=== PATIENT | female | born 1950 | race Caucasian/White ===

== ENCOUNTER 2022-02-26 16:08 | Emergency (ER) | payer MEDICARE ==
[2022-02-26] MEDS ORDERED: Lidocaine 1% (PF) 30 ML VIAL ONE (17:46)
[2022-02-26] MEDS ORDERED: Silver Nitrate Application 1 EACH ONE (17:47)
[2022-02-26] MEDS ORDERED: Lidocaine 1% w/Epinephrine 1:200K 30 ML VIAL FS SCH (18:00)
[2022-02-26] MEDS ORDERED: Boostrix 0.5 ML (Tdap) VIAL ONE ×2 (18:55→19:12)
== END 2022-02-26 19:36 | disposition home or self-care (01) ==
LOC: CSHERS 16:08
DX: S01.01XA Laceration without foreign body of scalp, initial encounter (principal); E11.9 Type 2 diabetes mellitus without complications; W19.XXXA Unspecified fall, initial encounter
CPT/HCPCS: 12002; 70450; 90471; 90715; J2001

== ENCOUNTER 2022-03-12 15:04 | Emergency (ER) | payer MEDICARE | END 2022-03-12 16:04 | disposition left against medical advice (07) | LOC: CSHERS 15:04 | DX: Z53.21 Procedure and treatment not carried out due to patient leaving prior to being seen by health care provider (principal) ==

== ENCOUNTER 2024-06-06 08:24 | Outpatient (CLI) | payer MEDICARE | END 2024-06-06 08:25 | disposition home or self-care (01) | LOC: CSHSLEEP 08:24 | PROVIDERS: ATTEND Internal Medicine | DX: G47.33 Obstructive sleep apnea (adult) (pediatric) (principal); G47.61 Periodic limb movement disorder | CPT/HCPCS: 95811 ==